=== PATIENT | female | born 1975 | race Caucasian/White ===

== ENCOUNTER 2019-09-13 12:50 | Emergency (ER) | payer OTHER ==
[~2019-09-13] VITALS: Ht 165.1 cm; Wt 79.4 kg
[2019-09-13] MEDS ORDERED: MESTINON60 M1 (13:34)
[2019-09-13] MEDS ORDERED: CENTRUM MULTI150 MCG (13:34)
[2019-09-13] MEDS ORDERED: COZAAR50 MG (13:35)
[2019-09-13] MEDS ORDERED: MILLIPRED5 MG (13:35)
[2019-09-13] MEDS ORDERED: MYCOPHENOLATE500 M1 (13:35)
[2019-09-13] MEDS ORDERED: ZONEGRAN100 MG PO (13:36)
[2019-09-13] MEDS ORDERED: KEPPRA1000 MG PO (13:36)
[2019-09-13] MEDS ORDERED: VITAMIN D3100 GM MC (13:36)
== END 2019-09-13 20:49 | disposition home or self-care (01) ==
LOC: ER 12:50
DX: K52.89 Other specified noninfective gastroenteritis and colitis (principal)